=== PATIENT | male | born 1945 | race Caucasian/White ===

== ENCOUNTER 2018-08-09 12:41 | Outpatient (CLI) | payer MEDICARE ==
--- NOTE | 2018-08-09 13:41 | RAD ---
EXAM: 5 views of the cervical spine HISTORY: Neck pain that extends down the right shoulder COMPARISON: None FINDINGS: AP, lateral, flexion/extension, and open mouth odontoid views of the cervical spine shows t he patient is status post anterior fusion of C4 and C5. No perihardware lucency is seen. The vertebral bodies demonstrate normal height without fracture. There is grade 1 anterolisthesis of C2 o n C3. Alignment is unchanged with flexion and extension. Intervertebral disc space narrowing is seen in the lower cervical spine. No prevertebral soft tissue swelling is seen. IMPRESSION: Degenerative and postsurgical changes of the cervical spine as above.
--- NOTE | 2018-08-09 14:08 | CT ---
CT CERVICAL SPINE WITHOUT CONTRAST: Date: 08/09/18 Multiple axial tomograms obtained through cervical spine without IV enhancement. INDICATION: Neck pain. Cervical spondylosis. Prior cervical surgery. FINDINGS: Postoperative changes are noted with evidence of anterior fusion procedure at C5-C6. Anterior plate a nd screws at this level. There has been interbody fusion. Degenerative changes are also noted in the cervical spine. Loss of disc space with degenerative spurr ing at C3-4. Loss of disc space with spurring at C5-6 and C6-7. Vacuum phenomenon at C6-7. Mild anter ior wedging of C6 with anterior osteophytes. Slight anterolisthesis at C2-3. Posterior alignment is otherwise preserved. At C2-3, there is mild spondylosis. Prominent facet hypertrophy on the left results in left foraminal stenosis. At C3-4, disc bulge and spondylosis impinge on and mildly flatten the cord. Bilateral foraminal steno sis due to facet and uncinate hypertrophy. Fusion at C4-5. However, there is posterior spondylosis with spurring at C4-5. This posterior spondyl itic change impinges on the cord centrally and to the left of midline at the C4-5 level flattening th e anterior cord. Mild left foraminal stenosis due to hypertrophic change. At C5-6, disc bulge and spondylosis is seen. Bony spondylitic change is more prominent paracentrally on the left, impinging on the anterior cord on the left. Left foraminal narrowing due to hypertrophic change. At C6-7, there is spondylosis impinging on and flattening the anterior cord, slightly more prominent to the right of midline. Right foraminal stenosis due to hypertrophic change. IMPRESSION: Postoperative and degenerative changes of cervical spine. Spondylosis impinges on the cord at multipl e levels as described above resulting in cervical canal stenosis and cord compression. POS: [facility]
== END 2018-08-09 12:42 | disposition home or self-care (01) ==
LOC: TBSIIMAG 12:41
PROVIDERS: ATTEND Surgery
DX: M47.812 Spondylosis without myelopathy or radiculopathy, cervical region (principal); M48.02 Spinal stenosis, cervical region; G95.20 Unspecified cord compression; Z98.890 Other specified postprocedural states
CPT/HCPCS: 72050; 72125

== ENCOUNTER 2018-09-07 05:32 | Outpatient (CLI) | payer MEDICARE ==
[2018-09-07 09:55] LABS: Hemoglobin 14.5 g/dL (14.0-18.0); Mean Corpuscular HGB CONC 32.6 g/dL (32.0-36.0); Mean Corpuscular Hemoglobin 30.1 pg (27.0-31.0); Mean Corpuscular Volume 92.3 fL (78.0-98.0); Mean Platelet Volume 7.5 fL (7.4-10.4); Platelet Count 211 thou/uL (130-400); RBC Distribution Width 13.3 % (11.5-14.5); White Blood Cell (WBC) Count 5.8 thou/uL (4.8-10.8)
[2018-09-07 09:59] LABS: PTT 35.5 SEC (22.9-36.1); Prothrombin Time 13.5 SEC (12.0-14.7)
[2018-09-07 10:15] LABS: Anion Gap 13 mmol/L (10-20); BUN (Urea Nitrogen) 18 mg/dL (8.4-25.7); Calc. Creatinine Clearance 0 mL/min (70-130); Calcium 9.8 mg/dL (7.8-10.44); Carbon Dioxide 27 mmol/L (23-31); Chloride 103 mmol/L (98-107); Estimated GFR-MDRD 54; Glucose 221 mg/dL (83-110); Potassium 4.4 mmol/L (3.5-5.1); Sodium 139 mmol/L (136-145)
--- NOTE | 2018-09-07 19:15 | EKG ---
Test Reason : Blood Pressure : / mmHG Vent. Rate : 085 BPM Atrial Rate : 085 BPM P-R Int : 202 ms QRS Dur : 130 ms QT Int : 404 ms P-R-T Axes : 060 -37 061 degrees QTc Int : 480 ms Normal sinus rhythm Left axis deviation Right bundle branch block Abnormal ECG When compared with ECG of 26-JUL-2016 13:52, Right bundle branch block has replaced Incomplete right bundle branch block Criteria for Inferior infarct are no longer Present Confirmed by DR. Angeline MCKEON ([id number]) on 09/07/2018 7:14:29 PM Referred By: DARLIN Confirmed By:DR. Angeline MCKEON
== END 2018-09-07 05:33 | disposition home or self-care (01) ==
LOC: LABBT 05:32
PROVIDERS: ATTEND Surgery
DX: Z01.818 Encounter for other preprocedural examination (principal); M48.02 Spinal stenosis, cervical region; M54.12 Radiculopathy, cervical region
CPT/HCPCS: 80048; 85027; 85610; 85730; 93005; 93010

== ENCOUNTER 2018-09-07 09:15 | Inpatient (IN) | payer MEDICARE ==
[2018-09-07 09:45] VITALS: BMI 35.9
[2018-09-14] MEDS ORDERED: Thrombin 5000 UNITS/5 ML VIAL ONE (10:10)
[2018-09-14] MEDS ORDERED: Sodium Chloride 0.9% 10 ML ONE (10:10)
[2018-09-14] MEDS ORDERED: Fentanyl 100 MCG/2 ML VIAL ONE ×3 (10:15→14:23)
[2018-09-14] MEDS ORDERED: Ondansetron PF 4 MG/2 ML Vial IVP PRN (13:50)
[2018-09-14] MEDS ORDERED: Fleet Enema 133 ML BOT PR PRN (13:50)
[2018-09-14] MEDS ORDERED: Milk Of Magnesia 30 ML UDCUP PO PRN (13:50)
[2018-09-14] MEDS ORDERED: Acetaminophen 325 MG TAB PO PRN (13:50)
[2018-09-14] MEDS ORDERED: HYDROcodone/Acetaminophen 7.5/325 mg Tablet PO PRN (13:50)
[2018-09-14] MEDS ORDERED: Bisacodyl 10 MG SUPP PR PRN (13:50)
[2018-09-14] MEDS ORDERED: Acetaminophen/Codeine 30-300mg Tablet PO PRN (13:50)
[2018-09-14] MEDS ORDERED: Mag-Al 1200 mg/1200 mg/30 ML UDCUP PO PRN (13:50)
[2018-09-14] MEDS ORDERED: Promethazine HCl 25 MG/ML VIAL IM/IV PRN (13:50)
[2018-09-14] MEDS ORDERED: traMADol HCl 50 MG TAB PO PRN (13:50)
[2018-09-14] MEDS ORDERED: tiZANidine HCl 4 MG TAB PO PRN (13:50)
[2018-09-14] MEDS: CEFAZOLIN 2 GM in Premix Bag 1 BAG IVPB SCH ×2 (15:37→21:20)
[2018-09-14] MEDS: Sodium Chloride 0.9% 1,000 ML IV SCH (15:48)
[2018-09-14] MEDS: Ibuprofen 200 MG TAB PO PRN (18:39)
--- NOTE | 2018-09-14 19:55 | OP ---
DATE OF PROCEDURE: 09/14/2018 ENVIRONMENTAL MONITORING SPECIALIST: Ronal Avelar PA-C PREPROCEDURE DIAGNOSIS: C3, C4, C5, C6, C7 stenosis consistent with proximal and distal adjacent segment disease with prior C4-C5 anterior diskectomy and fusion at outside institution. PROCEDURES PERFORMED: 1. Removal of plate, C4-C5 and assessment of fusion (while I suspected based on preoperative x-rays and CT that the patient had osseous fusion, I wanted to confirm this intraoperatively, hence the need to explore and confirm the fusion mass at C4-C5). 2. C3-C4 anterior cervical diskectomy for decompression of spinal cord nerve roots with placement of interbody spacer packed with local bone autograft obtained from the same incision and allograft, C3-C4 with anterior cervical plate and screw fixation. 3. C5-C6, C6-C7 diskectomy for decompression of spinal cord nerve roots with placement of interbody spacer packed with local bone autograft obtained from same incision and allograft, C5-C6, C6-C7 for arthrodesis. 4. Anterior cervical plate and screw fixation, C5, C6, C7. 5. Use of operative microscope for microdissection. DESCRIPTION OF PROCEDURE: After informed consent was obtained from the patient, the patient was brought to the OR. Proper patient, pause, and identification were carried out. He was placed under excellent general endotracheal anesthesia and positioned supine on the OR table. All appropriate points were padded. We identified the C3-C4 segments along with the C4-C5, C6-C7 segments, and an oblique hilaria was made over the right anterior neck. This region was sterilely cleansed, prepared, and draped, and proper patient, pause, and identification were carried out. The wound was then opened with combination of sharp, monopolar, and blunt dissection. We proceeded through scar tissue and some portions at C3, C4, C5, C6, and C7, working medial to the larynx and pharynx and tracheoesophageal bundle and medial to the right carotid sheath. We identified the prevertebral layer of deep cervical fascia, and again scar tissue was encountered. The plate was exposed and removed. I assessed the fusion at C4-C5, and the patient did have confirmation of osseous fusion intraoperatively as the CT and x-ray suggested. I then turned my attention to distraction at C3-C4 and diskectomy was performed at C3-C4 with decompression of spinal cord nerve roots at that segment. I then turned my attention to preparation of the endplates with placement of interbody spacer at C3-C4, packed with local bone autograft obtained from same incision and allograft, C3-C4 for arthrodesis. I then released the distraction and proceeded to with use of operative microscope again go to the C5-C6 segment and distraction occurred there and diskectomy performed at C5-C6. We then had excellent decompression of spinal cord nerve roots at C5-C6. We proceeded to go to the C6-C7 segment following placement of interbody spacer packed with graft for arthrodesis at C6-C7. The C6-C7 diskectomy was performed again with decompression of spinal cord nerve roots, and we had excellent decompression of this segment at C6-C7 as well. Spacer of appropriate dimension was placed at C6-C7 for arthrodesis as it was packed with graft. Microscope was then removed and anterior cervical plate and screw fixation at C3, C4, and C5, C6, C7 then occurred with final tightening. This was with two separate plates, one-level plate and two-level plate, I did not feel it necessary to plate across the C4-C5 segment as the patient had osseous fusion both radiologically and intraoperatively. Copious irrigation occurred throughout as did maximizing hemostasis. The wound was then closed in anatomic layers over drain. The patient emerged from anesthesia. Job ID: [id number]
[2018-09-14] MEDS ORDERED: Simvastatin 20 MG TAB PO SCH (21:00)
[2018-09-14] MEDS ORDERED: Melatonin 3 MG TAB PO SCH (21:00)
[2018-09-15] MEDS: Ibuprofen 200 MG TAB PO PRN (01:37)
[2018-09-15] MEDS: Sodium Chloride 0.9% 1,000 ML IV SCH (04:41)
[2018-09-15] MEDS: CEFAZOLIN 2 GM in Premix Bag 1 BAG IVPB SCH (05:50)
[2018-09-15] MEDS ORDERED: Levothyroxine Sodium 25 MCG TAB PO SCH ×2 (06:00→09:00)
[2018-09-15 08:19] VITALS: BP 135/71; TEMP 98.7
[2018-09-15] MEDS ORDERED: metFORMIN 500 MG TAB PO SCH (09:00)
[2018-09-15] MEDS ORDERED: Magnesium Oxide 250 MG TAB PO SCH (09:00)
== END 2018-09-15 10:35 | disposition home or self-care (01) | DRG 473 ==
LOC: SURG A 09-14 08:46
PROVIDERS: ADMIT Surgery; ATTEND Surgery
PROC: 0RG20A0 Fusion of 2 or more Cervical Vertebral Joints with Interbody Fusion Device, Anterior Approach, Anterior Column, Open Approach (ICD-10-PCS; principal; 2018-09-14)
PROC: 0RB30ZZ Excision of Cervical Vertebral Disc, Open Approach (ICD-10-PCS; 2018-09-14)
PROC: 0RP104Z Removal of Internal Fixation Device from Cervical Vertebral Joint, Open Approach (ICD-10-PCS; 2018-09-14)
DX: M48.02 Spinal stenosis, cervical region (principal); M54.12 Radiculopathy, cervical region; Z96.659 Presence of unspecified artificial knee joint; Z88.1 Allergy status to other antibiotic agents
CPT/HCPCS: 36416; 76000; C1713; C1776; J0690; J3010; J3490